=== PATIENT | male | born 1945 | race Caucasian/White ===

== ENCOUNTER 2020-03-08 11:23 | Outpatient (REF) | payer MEDICARE, SELFPAY | END 2020-03-08 11:24 | disposition home or self-care (01) | LOC: HO.LAB 11:23 | PROVIDERS: PCP Internal Medicine; Visit Provider Internal Medicine | DX: Z20.828 Contact with and (suspected) exposure to other viral communicable diseases (principal) | CPT/HCPCS: C9803; U0003 ==

== ENCOUNTER → 2020-04-30 09:39 | Outpatient (BNVA) | payer MEDICARE, SELFPAY | PROVIDERS: PCP Internal Medicine; Visit Provider Surgery | DX: K40.90 Unilateral inguinal hernia, without obstruction or gangrene, not specified as recurrent (principal) | CPT/HCPCS: 99202 ==

== ENCOUNTER 2020-05-13 07:21 | Outpatient (REF) | payer MEDICARE, SELFPAY ==
[2020-05-13 08:35] LABS: MANUAL DIFF FLAG SCAN; Mean Corpuscular Volume 97.1 fL (80-98); Mean Platelet Volume 9.9 fL (9.4-12.4); PLT CLUMP 1; SCAN SMEAR FLAG 1
[2020-05-13 08:37] LABS: Basophils Percent Auto 0.4 % (0-2); Eosinophils Absolute Auto 0.3 X10*3/uL (0.0-0.4); Eosinophils Percent Auto 4.9 % (0-4); Hematocrit 40.6 % (42-52); Hemoglobin 13.7 g/dl (14.0-18.0); Imm Gran Abs Auto 0.01 X10*3/uL (0.00-0.03); Imm Gran Pct Auto 0.2 % (0.0-0.4); Lymphocytes Absolute Auto 1.6 X10*3/uL (1.2-4.9); Lymphocytes Percent Auto 30.5 % (20-40); Mean Corpuscular HGB Conc 33.7 g/dl (31.0-36.0); Mean Corpuscular Hemoglobin 32.8 pg (27.0-33.0); Monocytes Absolute Auto 0.6 X10*3/uL (0.1-1.2); Monocytes Percent Auto 10.7 % (2-11); Neutrophils Absolute Auto 2.9 X10*3/uL (2.0-8.3); Neutrophils Percent Auto 53.3 % (45-73); Platelet Count 144 X10*3/uL (160-400); Red Blood Count 4.18 X10*6/uL (4.60-5.80); Red Cell Distribution Width 12.3 % (11.0-16.0); White Blood Count 5.3 X10*3/uL (4.8-10.8)
[2020-05-13 08:44] LABS: Glucose Urine UA NEG (NEG); Leukocyte Esterase Urine NEG (NEG); Nitrite Urine NEG (NEG); Urine Blood TRACE (NEG); Urine Ketones NEG (NEG); Urine Protein NEG (NEG-TRACE)
[2020-05-13 08:48] LABS: Appearance Urine CLEAR; Color Urine YELLOW
[2020-05-13 08:58] LABS: Alanine Aminotransferase 23 U/L (0-40); Albumin Level 4.2 g/dL (3.5-5.0); Alkaline Phosphatase 72 U/L (39-117); Anion Gap 10 (12-20); Aspartate Amino Transferase 22 U/L (5-37); Bilirubin Total 0.6 mg/dL (0.0-1.0); Blood Urea Nitrogen 14 mg/dL (9-16); Calcium 8.8 mg/dL (8.4-10.2); Carbon Dioxide 31 mmol/L (22-29); Chloride 104 mmol/L (96-108); Cholesterol 98 mg/dL; Estimated Glomerular Filt Rate > 60; Glucose Fasting 107 mg/dL (60-99); HDL Cholesterol 43 mg/dL; LDL Cholesterol Calculated 47 mg/dl; Potassium 3.9 mmol/l (3.3-5.1); Sodium 141 mmol/L (135-145); Total Protein 6.3 g/dL (6.5-8.0); Triglycerides 44 mg/dL
[2020-05-13 09:01] LABS: RBC Urine 0-2 /HPF (0); Squamous Epithelial Cell Urine TRACE /LPF; WBC Clumps Urine NOTED
[2020-05-13 09:13] LABS: Estimated Average Glucose 117 mg/dL; Hemoglobin A1c % 5.7 %
[2020-05-13 09:20] LABS: Prostate Specific Antigen 0.37 ng/mL (<0.05-4.0)
== END 2020-05-13 07:22 | disposition home or self-care (01) ==
LOC: HO.LAB 07:21
PROVIDERS: Absent Provider Internal Medicine; PCP Internal Medicine; Visit Provider Internal Medicine
DX: Z00.00 Encounter for general adult medical examination without abnormal findings (principal); Z01.812 Encounter for preprocedural laboratory examination; R63.4 Abnormal weight loss; I10 Essential (primary) hypertension; E78.00 Pure hypercholesterolemia, unspecified; R73.03 Prediabetes; N40.0 Benign prostatic hyperplasia without lower urinary tract symptoms; D72.820 Lymphocytosis (symptomatic); Z12.5 Encounter for screening for malignant neoplasm of prostate
CPT/HCPCS: 36415; 80053; 80061; 81001; 83036; 84153; 85025

== ENCOUNTER → 2020-06-18 10:15 | Outpatient (BNVA) | payer MEDICARE, SELFPAY | LOC: CF 06-19 10:27 | PROVIDERS: PCP Internal Medicine; Visit Provider Nurse Practitioner | DX: Z76.89 Persons encountering health services in other specified circumstances (principal) | CPT/HCPCS: 99212 ==

== ENCOUNTER 2020-06-19 10:24 | Outpatient (REF) | payer MEDICARE, SELFPAY ==
[2020-06-19 11:46] LABS: TSH reflex Free T4 0.98 uIU/mL (0.32-4.0)
== END 2020-06-19 10:25 | disposition home or self-care (01) ==
LOC: HO.LAB 10:24
PROVIDERS: Visit Provider Nurse Practitioner
DX: K59.04 Chronic idiopathic constipation (principal)
CPT/HCPCS: 36415; 84443

== ENCOUNTER → 2020-07-09 10:05 | Outpatient (BNVA) | payer MEDICARE, SELFPAY | PROVIDERS: PCP Internal Medicine; Visit Provider Nurse Practitioner | DX: Z13.89 Encounter for screening for other disorder (principal) | CPT/HCPCS: Q3014 ==

== ENCOUNTER → 2020-07-23 09:19 | Outpatient (BNVA) | payer MEDICARE, SELFPAY | PROVIDERS: PCP Internal Medicine; Visit Provider Nurse Practitioner | DX: Z13.89 Encounter for screening for other disorder (principal) | CPT/HCPCS: 99212 ==

== ENCOUNTER → 2020-07-25 13:36 | Outpatient (BNVA) | payer MEDICARE, SELFPAY | PROVIDERS: PCP Internal Medicine; Visit Provider Surgery | DX: K40.90 Unilateral inguinal hernia, without obstruction or gangrene, not specified as recurrent (principal) | CPT/HCPCS: 99212 ==

== ENCOUNTER 2020-08-12 07:23 | Day surgery (SDC) | payer MEDICARE, SELFPAY ==
[2020-08-06 14:54] VITALS: BMI 22.6
--- NOTE | 2020-08-08 13:06 | HO.ANESPROP2 ---
Documented by User: Gayatri Burgos 08/08/20 13:08 HPI - Anesthesia Eval Consult details Narrative: 75yo M for Right Hernia Repair Inguinal with Mesh daily ETOH PMFSH Active Problems Active Problems: All Active Problems (Updated 08/06/20 @ 14:48 by Emilia Soto) Right inguinal hernia (Acute) Lymphocytic colitis (Acute) Tubular adenoma of colon (Acute) Chronic idiopathic constipation (Acute) Weight loss, abnormal (Acute) Abdominal bloating (Acute) Past Medical History Medical History Anxiety Atherosclerotic heart disease of [place] coronary artery without angina pectoris Essential hypertension History of irritable bowel syndrome Pre-diabetes Prostatism Pure hypercholesterolemia Family History Family History Father History of skin cancer Surgical History Surgical History H/O coronary angioplasty History of colonoscopy History of Mohs surgery for squamous cell carcinoma in situ of skin History of vascular surgery Social History Social History Household Members: Spouse Alcohol intake: current Alcohol intake frequency: 0-2 drinks per day Alcohol type: beer and wine Smoking Status: Never smoker Use of substances other than those prescribed or required for medical reasons: No Advance Directives: No Advance Directives Information Provided: No Advance Directives on File: No Recently lost weight without trying: Yes Meds Allergies Allergy/AdvReac Type Severity Reaction Status Date / Time No Known Allergies Allergy Verified 08/12/20 08:33 [No Known Allergies*] Home Medications Medication Instructions Recorded Confirmed Last Taken Type aspirin 81 mg tablet,delayed 81 mg PO DAILY 04/30/20 08/06/20 Unknown History release atorvastatin 80 mg tablet 80 mg PO DAILY 04/30/20 08/06/20 Unknown History dutasteride 0.5 mg capsule 0.5 mg PO DAILY 04/30/20 08/06/20 Unknown History evolocumab 140 mg/mL subcutaneous 140 mg SUBCUT Q2W 04/30/20 08/06/20 Unknown History pen injector lorazepam 1 mg tablet 1 mg PO BEDTIME 04/30/20 08/06/20 Unknown History melatonin 5 mg tablet 10 mg PO BEDTIME PRN 04/30/20 08/06/20 Unknown History metoprolol tartrate 100 mg tablet 100 mg PO DAILY 04/30/20 08/06/20 08/12/20 History quinapril 10 mg tablet 10 mg PO DAILY 04/30/20 08/06/20 Unknown History tamsulosin 0.4 mg capsule 0.4 mg PO DAILY 04/30/20 08/06/20 Unknown History tramadol 50 mg tablet 50 mg PO Q12H PRN 04/30/20 08/06/20 Unknown History docusate sodium 250 mg capsule 250 mg PO DAILY 07/25/20 08/06/20 Unknown History simethicone 180 mg PO BID 08/06/20 08/06/20 Unknown History Exam Exam Date and Time: August 08, 2020 1307 Height,Weight and Vital Signs: Height 5 ft 11 in Weight 73.482 kg Assessment and Plan Assessment Anesthesia Assessment: Chart Reviewed Documented by User: Elian Li 08/12/20 08:38 [facility] Past Medical History Medical History Anxiety Atherosclerotic heart disease of [place] coronary artery without angina pectoris Essential hypertension History of irritable bowel syndrome Pre-diabetes Prostatism Pure hypercholesterolemia Family History Family History Father History of skin cancer Surgical History Surgical History H/O coronary angioplasty History of colonoscopy History of Mohs surgery for squamous cell carcinoma in situ of skin History of vascular surgery Social History Social History Household Members: Spouse Alcohol intake: current Alcohol intake frequency: 0-2 drinks per day Alcohol type: beer and wine Smoking Status: Never smoker Use of substances other than those prescribed or required for medical reasons: No Advance Directives: No Advance Directives Information Provided: No Advance Directives on File: No Recently lost weight without trying: Yes Meds Allergies Allergy/AdvReac Type Severity Reaction Status Date / Time No Known Allergies Allergy Verified 08/12/20 08:33 [No Known Allergies*] Home Medications Medication Instructions Recorded Confirmed Last Taken Type aspirin 81 mg tablet,delayed 81 mg PO DAILY 04/30/20 08/06/20 Unknown History release atorvastatin 80 mg tablet 80 mg PO DAILY 04/30/20 08/06/20 Unknown History dutasteride 0.5 mg capsule 0.5 mg PO DAILY 04/30/20 08/06/20 Unknown History evolocumab 140 mg/mL subcutaneous 140 mg SUBCUT Q2W 04/30/20 08/06/20 Unknown History pen injector lorazepam 1 mg tablet 1 mg PO BEDTIME 04/30/20 08/06/20 Unknown History melatonin 5 mg tablet 10 mg PO BEDTIME PRN 04/30/20 08/06/20 Unknown History metoprolol tartrate 100 mg tablet 100 mg PO DAILY 04/30/20 08/06/20 08/12/20 History quinapril 10 mg tablet 10 mg PO DAILY 04/30/20 08/06/20 Unknown History tamsulosin 0.4 mg capsule 0.4 mg PO DAILY 04/30/20 08/06/20 Unknown History tramadol 50 mg tablet 50 mg PO Q12H PRN 04/30/20 08/06/20 Unknown History docusate sodium 250 mg capsule 250 mg PO DAILY 07/25/20 08/06/20 Unknown History simethicone 180 mg PO BID 08/06/20 08/06/20 Unknown History Exam Airway Mallampati Class: II TM Dist: >3cm Neck ROM: Full Partial: Upper Loose/Missing/Broken Teeth: Yes Heart: [id number] Lungs: cta b/l Assessment and Plan Assessment Anesthesia Assessment: Anesthesia Plan Discussed, PAT Visit and Chart Reviewed Final Anesthetic Review NPO: Yes ASA Class: III Final Preanesthetic Review: No Changes in Pt Med Stat, Meds/Allgs Chart Reviewed, Consent Obtained/Reviewed and Anes Risks/Benef Reviewed Patient Risk: Intermediate Procedure Risk: Low Assessment/Block/Sedation in SS: Assess/Block/Sedation-SS Anesthetic Plan Anesthetic Plan: Agree w/ Assess. and Plan Disposition: Standard PACU
[2020-08-12] VITALS (7 sets, daily range): BP systolic 131–142; BP diastolic 68–88; PULSE 55–68; RESP 11–16; TEMP 36.3–36.7; O2SAT 98–100
--- NOTE | 2020-08-12 | ECG_ITS ---
Test Reason : PREOP Blood Pressure : / mmHG Vent. Rate : 052 BPM Atrial Rate : 052 BPM P-R Int : 186 ms QRS Dur : 082 ms QT Int : 428 ms P-R-T Axes : -14 -16 018 degrees QTc Int : 398 ms Sinus bradycardia Otherwise normal ECG When compared with ECG of 14-JAN-2015 08:27, No significant change was found Referred By: Gayatri Burgos Electronically Signed By:GUDELIA UNDERWOOD
--- NOTE | 2020-08-12 08:07 | MHC.SHP ---
Pre-Procedural Eval Section A The patient is an INPATIENT: No Changes since office visit: Yes Patient answered all questions; No Cold of Flu in the past 2 weeks, No New Medical Problems and No Changes in Medication The History & Physical has been completed within 30 days and I have reviewed it.: Yes Section B Chief Complaint: Right Inguinal Hernia Allergies: Allergies Allergy/AdvReac Type Severity Reaction Status Date / Time No Known Allergies Allergy Verified 08/06/20 14:53 [No Known Allergies*] Plan Diagnosis/Plan: Unchanged I have reviewed the history and physical and performed a pertinent physical examination on my patient. No changes have occurred unless specified.
[2020-08-12] MEDS: Lactated Ringers 1,000 ML 100 ML IVCONT (08:43)
--- NOTE | 2020-08-12 09:58 | W.PM.OPN ---
Operative Note Operative Note Date of Service: 08/12/20 Narrative: Preoperative diagnosis: Right inguinal hernia Postoperative diagnosis: Same Procedure: Repair of right inguinal hernia Surgeon: Johann Honeycutt MD Network Contract Manager: None Anesthesia: General LMA Indications for procedure: 75-year-old male presenting with a painful lump in the right groin which is increasing in size. On examination patient has a large right inguinal hernia which increases in size with Valsalva maneuvers. Operative findings:. Moderate-sized indirect right inguinal hernia Specimen: Hernia sac Estimated blood loss: 5 mL Complications: None Procedure details: Patient was brought to the OR and placed in a supine position. After administering general anesthesia the patient's abdomen was prepped with ChloraPrep and draped in a sterile fashion. A surgical time-out was called the consent confirmed. Patient received preoperative antibiotics and Venodyne boots were in place. Local anesthesia consisting of 0.5% Sensorcaine with epinephrine was infiltrated over the right inguinal ligament. Incision was then made in oblique fashion over the inguinal ligament. This carried out through subcutaneous tissue past Michelet's fashion up to the external oblique aponeurosis. Additional local was infiltrated below the external oblique aponeurosis. This was then incised with a scalpel wide with the Metzenbaum scissors. Spermatic cord was then dissected free from the surrounding inguinal canal and retracted using a [place] drain. The floor of the inguinal canal was examined and no direct hernia was identified. Fibers of the cremasteric muscle were then and an indirect sac was identified. This was dissected down to the internal ring. The sac was then opened and the contents reduced. The sac was then ligated with a 0 Polysorb suture. The sac was then divided above this. This was sent to the pathology department as a specimen. Attention was then directed to the direct space which was divided between Allis clamps. Fibers of the internal oblique and transversalis aponeurosis were divided and the preperitoneal space was opened. This was opened further with an open Ray-Master. A large extended PHS mesh was then obtained. The circular underlay was placed into the preperitoneal space and deployed. The overlay was then secured to the pubic tubercle conjoined tendon shelving edge of the inguinal ligament using interrupted 0 Polysorb sutures. A slit was made in the mesh and the mesh were wrapped around the spermatic cord at the internal ring. This was then secured to the shelving edge of the inguinal ligament using the 0 Polysorb suture. This was felt to be loose enough to allow the tip of an index finger to pass. Wounds were checked for hemostasis. Wounds were irrigated with saline solution and suctioned dry. External oblique aponeurosis was then closed using a running 2 0 Polysorb suture. Michelet's fascia and dermis reapproximated using interrupted 3-0 Polysorb sutures. Skin was then closed using a running subcuticular 4-0 Polysorb suture. Steri-Strips 2 x 2 gauze and Tegaderm were then applied. The patient tolerated the procedure well. Sponge, instrument, needle counts reported as correct. Patient was transferred to PACU in stable condition.
== END 2020-08-12 11:39 | disposition home or self-care (01) ==
PROVIDERS: PCP Internal Medicine; Visit Provider Surgery
PROC: (CPT 49505; principal; 2020-08-12 09:40)
DX: K40.90 Unilateral inguinal hernia, without obstruction or gangrene, not specified as recurrent (principal); I25.10 Atherosclerotic heart disease of native coronary artery without angina pectoris; Z98.61 Coronary angioplasty status; I10 Essential (primary) hypertension; R73.03 Prediabetes; Z79.82 Long term (current) use of aspirin; Z79.899 Other long term (current) drug therapy
CPT/HCPCS: 49505; 88302; 93005; C1781; J0690; J2250; J2405; J3010

== ENCOUNTER → 2020-08-13 13:07 | Outpatient (BNVA) | payer MEDICARE, SELFPAY | PROVIDERS: PCP Internal Medicine; Visit Provider Nurse Practitioner | DX: Z13.89 Encounter for screening for other disorder (principal) | CPT/HCPCS: 99212 ==

== ENCOUNTER → 2020-08-23 13:49 | Outpatient (BNVA) | payer MEDICARE, SELFPAY | PROVIDERS: PCP Internal Medicine; Visit Provider Surgery | DX: Z48.815 Encounter for surgical aftercare following surgery on the digestive system (principal); Z87.19 Personal history of other diseases of the digestive system | CPT/HCPCS: 99211; 99212 ==

== ENCOUNTER → 2020-09-17 15:03 | Outpatient (BNVA) | payer MEDICARE, SELFPAY | PROVIDERS: Visit Provider Nurse Practitioner ==

== ENCOUNTER → 2020-09-19 11:18 | Outpatient (BNVA) | payer MEDICARE, SELFPAY | PROVIDERS: PCP Internal Medicine; Referring Provider Internal Medicine; Visit Provider Surgery | DX: K40.90 Unilateral inguinal hernia, without obstruction or gangrene, not specified as recurrent (principal) | CPT/HCPCS: 99212 ==

== ENCOUNTER → 2020-09-20 15:53 | Outpatient (BNVA) | payer MEDICARE, SELFPAY | PROVIDERS: PCP Internal Medicine; Referring Provider Internal Medicine; Visit Provider Nurse Practitioner | DX: R14.0 Abdominal distension (gaseous) (principal); R63.4 Abnormal weight loss; K59.04 Chronic idiopathic constipation; K52.832 Lymphocytic colitis; D12.6 Benign neoplasm of colon, unspecified | CPT/HCPCS: 99212 ==

== ENCOUNTER 2020-10-07 09:35 | Outpatient (REF) | payer MEDICARE, SELFPAY ==
--- NOTE | ~2020-10-07 | FL_ITS ---
EXAMINATION: XR GI SERIES CLINICAL INFORMATION: Heartburn. COMPARISON: Upper GI high-density exam 09/03/2014. TECHNIQUE: Routine upper GI air-contrast study was performed. FINDINGS: Following oral administration of thick barium in upright view, there is normal propagation of bolus from the oral cavity through the pharynx and esophagus and into the stomach without any evidence of obstruction, narrowing or stricture. The peristalsis was unremarkable. On placing patient supine and prone lying, there is moderate gastroesophageal reflux into the mid esophagus with small sliding hiatal hernia. FLUOROSCOPY TIME: 1.3 minutes. DOSE AREA PRODUCT: 16.230 uGy-m2 (microgray-meter squared). FL/FL upper GI series IMPRESSION: Moderate gastroesophageal reflux with small sliding hiatal hernia.
== END 2020-10-07 09:36 | disposition home or self-care (01) ==
LOC: HO.XRAY 09:35
PROVIDERS: Absent Provider Nurse Practitioner; PCP Internal Medicine; Visit Provider Internal Medicine
DX: R12 Heartburn (principal)
CPT/HCPCS: 74240

== ENCOUNTER → 2020-10-31 09:06 | Outpatient (BNVA) | payer MEDICARE, SELFPAY | PROVIDERS: Visit Provider Nurse Practitioner | DX: Z13.89 Encounter for screening for other disorder (principal) | CPT/HCPCS: Q3014 ==

== ENCOUNTER 2020-11-29 08:34 | Day surgery (SDC) | payer MEDICARE, SELFPAY ==
[2020-11-22 14:31] VITALS: BMI 22.6
--- NOTE | 2020-11-28 08:31 | HO.ANESPROP2 ---
Documented by User: Gayatri Burgos 11/28/20 08:33 HPI - Anesthesia Eval Consult details Narrative: 75yo M for Upper Endoscopy daily ETOH s/p inguinal hernia repair 08/2020 with GA-LMA 5 PMFSH Active Problems Active Problems: All Active Problems (Updated 10/31/20 @ 10:31 by ARIADNE Oro) Right inguinal hernia (Acute) Lymphocytic colitis (Acute) Tubular adenoma of colon (Acute) Chronic idiopathic constipation (Acute) Weight loss, abnormal (Acute) Abdominal bloating (Acute) GERD (gastroesophageal reflux disease) (Acute) Past Medical History Medical History (Updated 10/31/20 @ 10:31 by ARIADNE Oro) Anxiety Atherosclerotic heart disease of [place] coronary artery without angina pectoris Essential hypertension History of irritable bowel syndrome Pre-diabetes Prostatism Pure hypercholesterolemia Family History Family History Father History of skin cancer Surgical History Surgical History (Updated 11/22/20 @ 14:21 by Janee Harper) H/O coronary angioplasty History of colonoscopy History of Mohs surgery for squamous cell carcinoma in situ of skin History of vascular surgery Hx of hernia repair Social History Social History Household Members: Spouse Are you a primary child care attendant to a significant other at home: No Do you presently have visiting nurse or other home services: No Alcohol intake: current Alcohol intake frequency: 0-2 drinks per day Alcohol type: beer and wine Patient Tobacco Use Status: Never used Tobacco Use of substances other than those prescribed or required for medical reasons: No Have you been hit, kicked, punched, or otherwise hurt by someone within the past year? If so, by whom?: No Are you DNR?: No Advance Directives: No Advance Directives Information Provided: No Advance Directives on File: No Recently lost weight without trying: No Eating poorly because of decreased appetite: No Meds Allergies Allergy/AdvReac Type Severity Reaction Status Date / Time No Known Allergies Allergy Verified 11/22/20 14:25 [No Known Allergies*] Home Medications Medication Instructions Recorded Confirmed Last Taken Type aspirin 81 mg tablet,delayed 81 mg PO DAILY 04/30/20 11/22/20 11/28/20 History release atorvastatin 80 mg tablet 80 mg PO DAILY 04/30/20 11/22/20 Unknown History dutasteride 0.5 mg capsule 0.5 mg PO DAILY 04/30/20 11/22/20 Unknown History evolocumab 140 mg/mL subcutaneous 140 mg SUBCUT Q2W 04/30/20 11/22/20 Unknown History pen injector lorazepam 1 mg tablet 1 mg PO BEDTIME 04/30/20 11/22/20 Unknown History melatonin 5 mg tablet 10 mg PO BEDTIME PRN 04/30/20 11/22/20 Unknown History metoprolol tartrate 100 mg tablet 100 mg PO DAILY 04/30/20 11/22/20 08/12/20 History quinapril 10 mg tablet 10 mg PO DAILY 04/30/20 11/22/20 Unknown History tamsulosin 0.4 mg capsule 0.4 mg PO DAILY 04/30/20 11/22/20 Unknown History tramadol 50 mg tablet 50 mg PO Q12H PRN 04/30/20 11/22/20 Unknown History docusate sodium 250 mg capsule 250 mg PO DAILY 07/25/20 11/22/20 Unknown History (Stool Softener) simethicone 180 mg capsule 180 mg PO BID 08/06/20 11/22/20 Unknown History Exam Exam Date and Time: November 28, 2020 0831 Height,Weight and Vital Signs: Height 5 ft 11 in Weight 73.4 kg Assessment and Plan Assessment Anesthesia Assessment: Chart Reviewed Documented by User: Latesha Nunez 11/29/20 09:45 [facility] Past Medical History Medical History (Updated 10/31/20 @ 10:31 by ARIADNE Oro) Anxiety Atherosclerotic heart disease of [place] coronary artery without angina pectoris Essential hypertension History of irritable bowel syndrome Pre-diabetes Prostatism Pure hypercholesterolemia Family History Family History Father History of skin cancer Family history of problems with anesthesia: No Surgical History Surgical History (Updated 11/22/20 @ 14:21 by Janee Harper) H/O coronary angioplasty History of colonoscopy History of Mohs surgery for squamous cell carcinoma in situ of skin History of vascular surgery Hx of hernia repair History of Problems with Anesthesia: No Social History Social History Household Members: Spouse Are you a primary child care attendant to a significant other at home: No Do you presently have visiting nurse or other home services: No Alcohol intake: current Alcohol intake frequency: 0-2 drinks per day Alcohol type: beer and wine Patient Tobacco Use Status: Never used Tobacco Use of substances other than those prescribed or required for medical reasons: No Have you been hit, kicked, punched, or otherwise hurt by someone within the past year? If so, by whom?: No Are you DNR?: No Advance Directives: No Advance Directives Information Provided: No Advance Directives on File: No Recently lost weight without trying: No Eating poorly because of decreased appetite: No Meds Allergies Allergy/AdvReac Type Severity Reaction Status Date / Time No Known Allergies Allergy Verified 11/22/20 14:25 [No Known Allergies*] Home Medications Medication Instructions Recorded Confirmed Last Taken Type aspirin 81 mg tablet,delayed 81 mg PO DAILY 04/30/20 11/22/20 11/28/20 History release atorvastatin 80 mg tablet 80 mg PO DAILY 04/30/20 11/22/20 Unknown History dutasteride 0.5 mg capsule 0.5 mg PO DAILY 04/30/20 11/22/20 Unknown History evolocumab 140 mg/mL subcutaneous 140 mg SUBCUT Q2W 04/30/20 11/22/20 Unknown History pen injector lorazepam 1 mg tablet 1 mg PO BEDTIME 04/30/20 11/22/20 Unknown History melatonin 5 mg tablet 10 mg PO BEDTIME PRN 04/30/20 11/22/20 Unknown History metoprolol tartrate 100 mg tablet 100 mg PO DAILY 04/30/20 11/22/20 08/12/20 History quinapril 10 mg tablet 10 mg PO DAILY 04/30/20 11/22/20 Unknown History tamsulosin 0.4 mg capsule 0.4 mg PO DAILY 04/30/20 11/22/20 Unknown History tramadol 50 mg tablet 50 mg PO Q12H PRN 04/30/20 11/22/20 Unknown History docusate sodium 250 mg capsule 250 mg PO DAILY 07/25/20 11/22/20 Unknown History (Stool Softener) simethicone 180 mg capsule 180 mg PO BID 08/06/20 11/22/20 Unknown History Exam Airway Mallampati Class: II (Upper partial) TM Dist: >3cm Neck ROM: Full Heart: amaris Lungs: cta Assessment and Plan Assessment Anesthesia Assessment: Anesthesia Plan Discussed and Chart Reviewed Final Anesthetic Review Family History of Problems with Anesthesia: No History of Problems with Anesthesia: No NPO: Yes ASA Class: II Final Preanesthetic Review: No Changes in Pt Med Stat, Meds/Allgs Chart Reviewed and Consent Obtained/Reviewed Patient Risk: Intermediate Procedure Risk: Intermediate Anesthetic Plan Anesthetic Plan: MAC: Disposition: Standard PACU
[2020-11-29 09:00] VITALS: BP 125/65; PULSE 50; RESP 8; TEMP 36.1; O2SAT 97
--- NOTE | 2020-11-29 09:15 | ECG_ITS ---
Test Reason : PREOP Blood Pressure : / mmHG Vent. Rate : 049 BPM Atrial Rate : 049 BPM P-R Int : 192 ms QRS Dur : 082 ms QT Int : 442 ms P-R-T Axes : -13 -21 009 degrees QTc Int : 399 ms Sinus bradycardia Otherwise normal ECG When compared with ECG of 12-AUG-2020 08:01, No significant change was found Referred By: Latesha Nunez Electronically Signed By:GUDELIA UNDERWOOD
[2020-11-29] MEDS: Lactated Ringers 1,000 ML 100 ML IVCONT (09:59)
[2020-11-29 11:12] VITALS: BP 120/63; PULSE 57; RESP 16; TEMP 36.2; O2SAT 97
--- NOTE | 2020-11-29 11:21 | P.BOP_ITS ---
Brief Operative Note Date of Service: 11/29/20 Pre-op diagnosis: GERD Post-op diagnosis: other (Small hiatal hernia) Procedure: EGD with biopsies Surgeon: Bennett Colin Anesthesia: MAC Was an Biodiesel Production Associate used for this Procedure?: No Estimated blood loss (mL): 2.0 Pathology: other (A. Gastric antrum B. EG Junction at 40cm) Condition: stable Disposition: PACU
[2020-11-29 11:27] VITALS: BP 125/69; PULSE 51; RESP 16; O2SAT 97
[2020-11-29 11:41] VITALS: BP 110/71; PULSE 51; RESP 18; O2SAT 98
--- NOTE | 2020-11-29 11:42 | OP_ITS ---
SURGEON: Bennett Colin MD INDICATIONS: The patient presents for evaluation of gastroesophageal reflux. Full consent has been obtained from him for this, including risks of bleeding and perforation. PREOPERATIVE DIAGNOSIS: Gastroesophageal reflux. POSTOPERATIVE DIAGNOSIS: PROCEDURE PERFORMED: Esophagogastroduodenoscopy with biopsy. ESTIMATED BLOOD LOSS: COMPLICATIONS: ANESTHESIA: Monitored anesthesia care. ASSISTANTS: SPECIMENS: POSTOPERATIVE DIAGNOSES: Gastroesophageal reflux, small hiatal hernia. DESCRIPTION OF PROCEDURE: The patient was placed in the left lateral decubitus position. The Olympus video gastroscope was passed in the posterior oropharynx and upper esophagus under direct vision. The scope was passed slowly into the distal esophagus. The gastroesophageal junction appeared at 40 cm. This area appeared minimally irregular consistent with some reflux, but there was certainly no esophagitis nor any evidence of Jerry's mucosa. The scope entered into the stomach. There was a small hiatal hernia. The scope was advanced to the pylorus and the duodenum was cannulated to the descending portion. The duodenum including the bulb appeared normal without mass or ulceration. The scope was withdrawn back into the stomach. The gastric antrum had some minimal areas of erythema, but there was good peristalsis, and no erosions nor ulceration. Biopsies were obtained from the antrum. The scope was retroflexed visualizing the proximal stomach carefully which appeared normal, without any sign of mass or ulceration. The scope was straightened out and withdrawn back into the esophagus. Biopsies were obtained at the EG junction at 40 cm. Proximal to this, the esophageal mucosa appeared normal. The scope was withdrawn from the patient. He tolerated the procedure well and was returned to the recovery area in stable condition. IMPRESSION: Small hiatal hernia, gastroesophageal reflux. PLAN: The results of the biopsies will be checked. At this point, he will continue his current regimen of the pantoprazole once or twice a day for symptomatic relief. He was advised to see me in the fall for a followup visit. Based on these essentially normal findings, I do not think any further workup would be required and I would not recommend consideration of hiatal hernia surgery at this time. He was advised that he could resume aspirin tomorrow. MD MARIAN Torrez/OFEL / [id number] LEIGHANN
== END 2020-11-29 12:27 | disposition home or self-care (01) ==
PROVIDERS: PCP Internal Medicine; Visit Provider Internal Medicine
PROC: 0DJ08ZZ Inspection of Upper Intestinal Tract, Via Natural or Artificial Opening Endoscopic (ICD-10-PCS; CPT 43235; principal; 2020-11-29 10:10)
DX: K21.9 Gastro-esophageal reflux disease without esophagitis (principal); K44.9 Diaphragmatic hernia without obstruction or gangrene; K29.50 Unspecified chronic gastritis without bleeding; K20.80 Other esophagitis without bleeding; I25.10 Atherosclerotic heart disease of native coronary artery without angina pectoris; Z98.61 Coronary angioplasty status; I10 Essential (primary) hypertension; Z79.899 Other long term (current) drug therapy; Z79.82 Long term (current) use of aspirin; Z85.828 Personal history of other malignant neoplasm of skin
CPT/HCPCS: 43239; 88305; 88342; 93005

== ENCOUNTER 2021-01-20 08:15 | Outpatient (REF) | payer MEDICARE, SELFPAY ==
--- NOTE | ~2021-01-20 | US_ITS ---
EXAMINATION: US ABDOMEN COMPLETE CLINICAL INFORMATION: Epigastric pain. COMPARISON: Upper GI 10/07/2020 and 09/03/2014 TECHNIQUE: Real-time imaging of the abdominal viscera. FINDINGS: PANCREAS: Normal. ABDOMINAL AORTA: The proximal, mid, and distal segments are normal in caliber. There is mild ectasia of the abdominal aorta but no aneurysmal dilatation in the mid segment. INFERIOR VENA CAVA: Visualized portions are normal. LIVER: Normal. The liver is normal in size. The liver contour is normal. Parenchymal echogenicity is normal. No focal hepatic lesion. There is no intrahepatic biliary duct dilatation seen. GALLBLADDER: Normal. The gallbladder is physiologically distended without evidence of stones, sludge, polyps, wall thickening or pericholecystic fluid. COMMON BILE DUCT: Normal in caliber measuring 0.3 cm in diameter. RIGHT KIDNEY: Normal. No hydronephrosis. No renal calculi or focal parenchymal lesions. The kidney measures 11.7 cm in maximum dimension. LEFT KIDNEY: Normal. No hydronephrosis. No renal calculi or focal parenchymal lesions. The kidney measures 11.2 cm in maximum dimension. SPLEEN: A small accessory splenule is visualized measuring 2.0 x 1.8 x 1.7 cm. The spleen measures 10.7 cm in maximum dimension. FREE FLUID: None. US/US abdomen complete IMPRESSION: Minimal ectasia mid abdominal aorta but no aneurysmal dilatation. Small accessory splenule inferior to the hilum. Rest of the abdominal ultrasound is unremarkable.
== END 2021-01-20 08:16 | disposition home or self-care (01) ==
LOC: HO.US 08:15
PROVIDERS: PCP Internal Medicine; Visit Provider Internal Medicine
DX: R10.13 Epigastric pain (principal)
CPT/HCPCS: 76700

== ENCOUNTER 2021-02-14 08:10 | Outpatient (REF) | payer MEDICARE, SELFPAY ==
[2021-02-14 08:58] LABS: PLT CLUMP 1; SCAN SMEAR FLAG 1
[2021-02-14 09:00] LABS: Basophils Percent Auto 0.6 % (0-2); Eosinophils Absolute Auto 0.2 X10*3/uL (0.0-0.4); Hematocrit 35.8 % (42-52); Hemoglobin 12.4 g/dl (14.0-18.0); Imm Gran Abs Auto 0.02 X10*3/uL (0.00-0.03); Imm Gran Pct Auto 0.4 % (0.0-0.4); Lymphocytes Absolute Auto 1.2 X10*3/uL (1.2-4.9); Lymphocytes Percent Auto 24.3 % (20-40); Mean Corpuscular HGB Conc 34.6 g/dl (31.0-36.0); Mean Corpuscular Hemoglobin 32.6 pg (27.0-33.0); Mean Corpuscular Volume 94.2 fL (80-98); Monocytes Absolute Auto 0.6 X10*3/uL (0.1-1.2); Monocytes Percent Auto 12.2 % (2-11); Neutrophils Absolute Auto 2.8 X10*3/uL (2.0-8.3); Neutrophils Percent Auto 58.5 % (45-73); Platelet Count 130 X10*3/uL (160-400); Red Cell Distribution Width 12.7 % (11.0-16.0); White Blood Count 4.8 X10*3/uL (4.8-10.8)
[2021-02-14 09:27] LABS: INTERNATIONAL NORM RATIO 1.2 (0.9-1.1); Prothrombin Time 13.3 SEC (9.9-13.0)
[2021-02-14 09:33] LABS: Anion Gap 9 (12-20); Blood Urea Nitrogen 13 mg/dL (9-16); Calcium 9.2 mg/dL (8.4-10.2); Carbon Dioxide 27 mmol/L (22-29); Chloride 109 mmol/L (96-108); Estimated Glomerular Filt Rate > 60; Glucose Random 89 mg/dL (60-115); Sodium 141 mmol/L (135-145)
== END 2021-02-14 08:11 | disposition home or self-care (01) ==
LOC: HO.LAB 08:10
PROVIDERS: PCP Internal Medicine; Visit Provider Internal Medicine
DX: R94.39 Abnormal result of other cardiovascular function study (principal); I25.119 Atherosclerotic heart disease of native coronary artery with unspecified angina pectoris
CPT/HCPCS: 36415; 80048; 85025; 85610

== ENCOUNTER 2021-05-08 16:00 | Outpatient (REF) | payer MEDICARE, SELFPAY ==
[2021-05-08 16:02] LABS: MANUAL DIFF FLAG NO
[2021-05-08 16:09] LABS: Basophils Percent Auto 0.5 % (0-2); Eosinophils Absolute Auto 0.2 X10*3/uL (0.0-0.4); Eosinophils Percent Auto 3.8 % (0-4); Hematocrit 38.4 % (42.0-52.0); Hemoglobin 12.8 g/dl (14.0-18.0); Imm Gran Abs Auto 0.01 X10*3/uL (0.00-0.03); Imm Gran Pct Auto 0.2 % (0.0-0.4); Lymphocytes Absolute Auto 1.7 X10*3/uL (1.2-4.9); Lymphocytes Percent Auto 30.5 % (20-40); Mean Corpuscular HGB Conc 33.3 g/dl (31.0-36.0); Mean Corpuscular Hemoglobin 31.4 pg (27.0-33.0); Mean Corpuscular Volume 94.3 fL (80.0-98.0); Mean Platelet Volume 9.8 fL (9.4-12.4); Monocytes Absolute Auto 0.6 X10*3/uL (0.1-1.2); Monocytes Percent Auto 10.1 % (2-11); Neutrophils Absolute Auto 3.1 x10*3/uL (2.0-8.3); Neutrophils Percent Auto 54.9 % (45-73); Platelet Count 165 X10*3/uL (160-400); Red Blood Count 4.07 X10*6/uL (4.60-5.80); Red Cell Distribution Width 12.9 % (11.0-16.0); White Blood Count 5.6 X10*3/uL (4.8-10.8)
[2021-05-08 16:39] LABS: Iron 45 mcg/dL (45-160); Percent Iron Saturation 17 % (15-50); Total Iron Binding Capacity 259 mcg/dL (228-428); Unsaturated Iron Binding 214 ug/dL
== END 2021-05-08 16:01 | disposition home or self-care (01) ==
LOC: HO.LNP 16:00
PROVIDERS: Visit Provider Internal Medicine
DX: D64.9 Anemia, unspecified (principal)
CPT/HCPCS: 83540; 85025

== ENCOUNTER 2021-06-09 10:58 | Outpatient (REF) | payer MEDICARE, SELFPAY ==
[2021-06-09 11:01] LABS: MANUAL DIFF FLAG NO
[2021-06-09 11:19] LABS: Basophils Percent Auto 0.3 % (0-2); Eosinophils Absolute Auto 0.2 X10*3/uL (0.0-0.4); Hematocrit 40.6 % (42.0-52.0); Hemoglobin 13.2 g/dl (14.0-18.0); Imm Gran Abs Auto 0.02 X10*3/uL (0.00-0.03); Imm Gran Pct Auto 0.3 % (0.0-0.4); Lymphocytes Absolute Auto 1.5 X10*3/uL (1.2-4.9); Lymphocytes Percent Auto 25.1 % (20-40); Mean Corpuscular HGB Conc 32.5 g/dl (31.0-36.0); Mean Corpuscular Hemoglobin 30.3 pg (27.0-33.0); Mean Corpuscular Volume 93.3 fL (80.0-98.0); Mean Platelet Volume 9.8 fL (9.4-12.4); Monocytes Absolute Auto 0.6 X10*3/uL (0.1-1.2); Monocytes Percent Auto 10.1 % (2-11); Neutrophils Absolute Auto 3.6 x10*3/uL (2.0-8.3); Neutrophils Percent Auto 61.2 % (45-73); Platelet Count 171 X10*3/uL (160-400); Red Blood Count 4.35 X10*6/uL (4.60-5.80); Red Cell Distribution Width 13.9 % (11.0-16.0); White Blood Count 5.9 X10*3/uL (4.8-10.8)
[2021-06-09 11:29] LABS: Estimated Average Glucose 123 mg/dL; Hemoglobin A1c % 5.9 %
[2021-06-09 11:35] LABS: Appearance Urine CLEAR; Color Urine YELLOW; Glucose Urine UA NEG (NEG); Leukocyte Esterase Urine NEG (NEG); Nitrite Urine NEG (NEG); PH 5.5 (5.0-8.0); Specific Gravity - Urine 1.025 (1.005-1.025); Urine Blood 1+ (NEG); Urine Ketones NEG (NEG); Urine Protein NEG (NEG-TRACE)
[2021-06-09 11:46] LABS: Microalbum/Creatinine Ratio Ur 47.8 ug/mg cr
[2021-06-09 12:00] LABS: Squamous Epithelial Cell Urine TRACE /LPF; WBC Urine 0-2 /HPF (0-4)
[2021-06-09 12:04] LABS: PSA,Total (Free>4and<10) 0.32 ng/mL (0.00-4.00)
[2021-06-09 12:07] LABS: Alanine Aminotransferase 20 U/L (0-40); Albumin Level 4.1 g/dL (3.5-5.0); Alkaline Phosphatase 107 U/L (39-117); Anion Gap 10 (12-20); Aspartate Amino Transferase 22 U/L (5-37); Bilirubin Total 0.7 mg/dL (0.0-1.0); Blood Urea Nitrogen 20 mg/dL (9-16); Calcium 9.4 mg/dL (8.4-10.2); Carbon Dioxide 27 mmol/L (22-29); Chloride 106 mmol/L (96-108); Cholesterol 166 mg/dL; Estimated Glomerular Filt Rate > 60; Glucose Fasting 111 mg/dL (60-99); HDL Cholesterol 34 mg/dL; LDL Cholesterol Calculated 117 mg/dl; Potassium 3.8 mmol/L (3.3-5.1); Sodium 139 mmol/L (135-145); Total Protein 6.7 g/dL (6.5-8.0); Triglycerides 77 mg/dL
== END 2021-06-09 10:59 | disposition home or self-care (01) ==
LOC: HO.LNP 10:58
PROVIDERS: PCP Internal Medicine; Visit Provider Internal Medicine
DX: Z00.00 Encounter for general adult medical examination without abnormal findings (principal); Z12.5 Encounter for screening for malignant neoplasm of prostate; N40.0 Benign prostatic hyperplasia without lower urinary tract symptoms; R73.03 Prediabetes; E78.00 Pure hypercholesterolemia, unspecified; I10 Essential (primary) hypertension
CPT/HCPCS: 80053; 80061; 81001; 81003; 82043; 83036; 84153; 85025

== ENCOUNTER 2021-08-14 10:33 | Outpatient (REF) | payer MEDICARE, SELFPAY ==
[2021-08-14 11:35] LABS: Appearance Urine HAZY; Color Urine YELLOW; Glucose Urine UA NEG (NEG); Leukocyte Esterase Urine NEG (NEG); Nitrite Urine NEG (NEG); Urine Blood TRACE (NEG); Urine Ketones NEG (NEG); Urine Protein NEG (NEG-TRACE)
[2021-08-14 11:50] LABS: Alanine Aminotransferase 18 U/L (0-40); Albumin Level 4.2 g/dL (3.5-5.0); Alkaline Phosphatase 89 U/L (39-117); Aspartate Amino Transferase 22 U/L (5-37); Bilirubin Direct 0.4 mg/dL (0.0-0.5); Bilirubin Total 0.8 mg/dL (0.0-1.0); Cholesterol 111 mg/dL; HDL Cholesterol 39 mg/dL; LDL Cholesterol Calculated 61 mg/dl; Total Protein 6.7 g/dL (6.5-8.0); Triglycerides 56 mg/dL
[2021-08-14 12:00] LABS: Squamous Epithelial Cell Urine TRACE /LPF
[2021-08-14 12:01] LABS: Bacteria Urine TRACE /LPF
[2021-08-14 12:29] LABS: Reflex LDLD? No
== END 2021-08-14 10:34 | disposition home or self-care (01) ==
LOC: HO.LNP 10:33
PROVIDERS: PCP Internal Medicine; Visit Provider Internal Medicine
DX: R31.21 Asymptomatic microscopic hematuria (principal); E78.00 Pure hypercholesterolemia, unspecified
CPT/HCPCS: 80061; 80076; 81001

== ENCOUNTER 2021-12-16 10:45 | Outpatient (REF) | payer MEDICARE, SELFPAY ==
[2021-12-16 11:24] LABS: Alanine Aminotransferase 20 U/L (0-40); Albumin Level 4.3 g/dL (3.5-5.0); Alkaline Phosphatase 68 U/L (39-117); Aspartate Amino Transferase 20 U/L (5-37); Bilirubin Direct 0.5 mg/dL (0.0-0.5); Bilirubin Total 0.9 mg/dL (0.0-1.0); Cholesterol 102 mg/dL; HDL Cholesterol 40 mg/dL; LDL Cholesterol Calculated 49 mg/dl; Total Protein 6.8 g/dL (6.5-8.0); Triglycerides 69 mg/dL
[2021-12-16 12:42] LABS: Reflex LDLD? No
== END 2021-12-16 10:46 | disposition home or self-care (01) ==
LOC: HO.LNP 10:45
PROVIDERS: Visit Provider Internal Medicine
DX: E78.00 Pure hypercholesterolemia, unspecified (principal)
CPT/HCPCS: 80061; 80076

== ENCOUNTER 2022-06-29 11:07 | Outpatient (REF) | payer MEDICARE, SELFPAY ==
[2022-06-29 11:11] LABS: MANUAL DIFF FLAG NO
[2022-06-29 11:42] LABS: Basophils Percent Auto 0.6 % (0-2); Eosinophils Absolute Auto 0.2 X10*3/uL (0.0-0.4); Eosinophils Percent Auto 4.9 % (0-4); Hematocrit 41.2 % (42.0-52.0); Hemoglobin 14.1 g/dl (14.0-18.0); Imm Gran Abs Auto 0.01 X10*3/uL (0.00-0.03); Imm Gran Pct Auto 0.2 % (0.0-0.4); Lymphocytes Absolute Auto 1.6 X10*3/uL (1.2-4.9); Lymphocytes Percent Auto 32.6 % (20-40); Mean Corpuscular HGB Conc 34.2 g/dl (31.0-36.0); Mean Corpuscular Hemoglobin 32.3 pg (27.0-33.0); Mean Corpuscular Volume 94.5 fL (80.0-98.0); Mean Platelet Volume 9.8 fL (9.4-12.4); Monocytes Absolute Auto 0.6 X10*3/uL (0.1-1.2); Monocytes Percent Auto 11.3 % (2-11); Neutrophils Absolute Auto 2.5 x10*3/uL (2.0-8.3); Neutrophils Percent Auto 50.4 % (45-73); Platelet Count 153 X10*3/uL (160-400); Red Blood Count 4.36 X10*6/uL (4.60-5.80); Red Cell Distribution Width 13.2 % (11.0-16.0); White Blood Count 4.9 X10*3/uL (4.8-10.8)
[2022-06-29 11:48] LABS: Estimated Average Glucose 120 mg/dL; Hemoglobin A1c % 5.8 %
[2022-06-29 12:02] LABS: Alanine Aminotransferase 21 U/L (0-40); Albumin Level 4.1 g/dL (3.5-5.0); Alkaline Phosphatase 69 U/L (39-117); Anion Gap 10 (12-20); Appearance Urine Clear; Aspartate Amino Transferase 21 U/L (5-37); Bilirubin Total 1.2 mg/dL (0.0-1.0); Blood Urea Nitrogen 19 mg/dL (9-16); Calcium 9.3 mg/dL (8.4-10.2); Carbon Dioxide 29 mmol/L (22-29); Chloride 106 mmol/L (96-108); Cholesterol 104 mg/dL; Color Urine Yellow; Estimated Glomerular Filt Rate > 60; Glucose Fasting 95 mg/dL (60-99); Glucose Urine UA Negative (Negative); HDL Cholesterol 39 mg/dL; LDL Cholesterol Calculated 50 mg/dl; Leukocyte Esterase Urine Negative (Negative); Nitrite Urine Negative (Negative); PH 6.5 (5.0-9.0); Potassium 3.9 mmol/L (3.3-5.1); Sodium 141 mmol/L (135-145); Total Protein 6.5 g/dL (6.5-8.0); Triglycerides 76 mg/dL; Urine Blood Negative (Negative); Urine Ketones Negative (Negative); Urine Protein Negative (Neg-Trace)
[2022-06-29 12:06] LABS: Bacteria Urine None Seen (None Seen); Hyaline Casts Urine 0-2 /LPF (0-2); Squamous Epithelial Cell Urine 0-2 /HPF (0-2); WBC Urine 0-5 /HPF (0-5)
[2022-06-29 12:19] LABS: PSA,Total (Free>4and<10) 0.56 ng/mL (0.00-4.00)
[2022-06-29 12:48] LABS: Creatinine Urine 103.07 mg/dL; Microalbum/Creatinine Ratio Ur 38.8 ug/mg cr
== END 2022-06-29 11:08 | disposition home or self-care (01) ==
LOC: HO.LNP 11:07
PROVIDERS: Visit Provider Internal Medicine
DX: Z00.00 Encounter for general adult medical examination without abnormal findings (principal); Z12.5 Encounter for screening for malignant neoplasm of prostate; I10 Essential (primary) hypertension; E78.00 Pure hypercholesterolemia, unspecified; R73.03 Prediabetes; N40.0 Benign prostatic hyperplasia without lower urinary tract symptoms; D72.820 Lymphocytosis (symptomatic)
CPT/HCPCS: 80053; 80061; 81001; 82043; 83036; 84153; 85025

== ENCOUNTER 2022-07-09 12:18 | Outpatient (REF) | payer MEDICARE, SELFPAY ==
[2022-07-09 12:36] LABS: Appearance Urine Clear; Color Urine Yellow; Glucose Urine UA Negative (Negative); Leukocyte Esterase Urine Negative (Negative); Nitrite Urine Negative (Negative); PH 5.5 (5.0-9.0); UMIC TRIGGER UACC YES; Urine Blood Small (1+) (Negative); Urine Ketones Negative (Negative); Urine Protein Negative (Neg-Trace)
[2022-07-09 12:39] LABS: Bacteria Urine None Seen (None Seen); Hyaline Casts Urine 0-2 /LPF (0-2); Squamous Epithelial Cell Urine 0-2 /HPF (0-2); WBC Urine 0-5 /HPF (0-5)
== END 2022-07-09 12:19 | disposition home or self-care (01) ==
LOC: HO.LNP 12:18
PROVIDERS: Visit Provider Internal Medicine
DX: R31.9 Hematuria, unspecified (principal)
CPT/HCPCS: 81001

== ENCOUNTER 2023-08-19 10:54 | Outpatient (REF) | payer MEDICARE, SELFPAY ==
[2023-08-19 10:58] LABS: MANUAL DIFF FLAG NO
[2023-08-19 12:19] LABS: Basophils Percent Auto 0.6 % (0-2); Eosinophils Absolute Auto 0.2 X10*3/uL (0.0-0.4); Eosinophils Percent Auto 3.5 % (0-4); Hemoglobin 14.2 g/dl (14.0-18.0); Imm Gran Abs Auto 0.01 X10*3/uL (0.00-0.03); Imm Gran Pct Auto 0.2 % (0.0-0.4); Lymphocytes Percent Auto 31.2 % (20-40); Mean Corpuscular HGB Conc 33.8 g/dl (31.0-36.0); Mean Corpuscular Hemoglobin 32.4 pg (27.0-33.0); Mean Corpuscular Volume 95.9 fL (80.0-98.0); Mean Platelet Volume 10.3 fL (9.4-12.4); Monocytes Absolute Auto 0.6 X10*3/uL (0.1-1.2); Monocytes Percent Auto 9.7 % (2-11); Neutrophils Absolute Auto 3.5 x10*3/uL (2.0-8.3); Neutrophils Percent Auto 54.8 % (45-73); Platelet Count 169 X10*3/uL (160-400); Red Blood Count 4.38 X10*6/uL (4.60-5.80); Red Cell Distribution Width 13.3 % (11.0-16.0); White Blood Count 6.3 X10*3/uL (4.8-10.8)
[2023-08-19 12:37] LABS: Estimated Average Glucose 120 mg/dL; Hemoglobin A1c % 5.8 % (<6.0)
[2023-08-19 13:09] LABS: Creatinine Urine 82.37 mg/dL; Microalbum/Creatinine Ratio Ur 21.8 ug/mg cr (<30)
[2023-08-19 13:17] LABS: Alanine Aminotransferase 20 U/L (0-40); Albumin Level 4.2 g/dL (3.5-5.0); Alkaline Phosphatase 73 U/L (39-117); Anion Gap 10 (12-20); Aspartate Amino Transferase 22 U/L (5-37); Bilirubin Direct 0.4 mg/dL (0.0-0.5); Bilirubin Total 0.9 mg/dL (0.0-1.0); Blood Urea Nitrogen 17 mg/dL (9-16); Calcium 9.5 mg/dL (8.4-10.2); Carbon Dioxide 27 mmol/L (22-29); Chloride 106 mmol/L (96-108); Estimated Glomerular Filt Rate > 60; Glucose Fasting 103 mg/dL (60-99); Potassium 4.1 mmol/L (3.3-5.1); Sodium 139 mmol/L (135-145); Total Protein 6.9 g/dL (6.5-8.0)
== END 2023-08-19 10:55 | disposition home or self-care (01) ==
LOC: HO.LNP 10:54
PROVIDERS: Visit Provider Internal Medicine
DX: Z12.5 Encounter for screening for malignant neoplasm of prostate (principal); R73.03 Prediabetes; I10 Essential (primary) hypertension; D72.820 Lymphocytosis (symptomatic); N40.0 Benign prostatic hyperplasia without lower urinary tract symptoms
CPT/HCPCS: 80053; 80076; 82043; 82248; 82570; 83036; 84153; 85025

== ENCOUNTER 2023-08-26 11:10 | Outpatient (REF) | payer MEDICARE, SELFPAY ==
[2023-08-26 12:08] LABS: Cholesterol 102 mg/dL (<200); HDL Cholesterol 40 mg/dL (>40); LDL Cholesterol Calculated 50 mg/dL (<100); Triglycerides 64 mg/dL (<150)
[2023-08-26 12:54] LABS: Reflex LDLD? No
== END 2023-08-26 11:11 | disposition home or self-care (01) ==
LOC: HO.LNP 11:10
PROVIDERS: Visit Provider Internal Medicine
DX: E78.00 Pure hypercholesterolemia, unspecified (principal)
CPT/HCPCS: 80061

== ENCOUNTER 2024-08-22 10:29 | Outpatient (REF) | payer MEDICARE, SELFPAY ==
[2024-08-22 10:34] LABS: MANUAL DIFF FLAG NO
[2024-08-22 11:16] LABS: Appearance Urine Clear; Color Urine Yellow; Glucose Urine UA Negative (Negative); Leukocyte Esterase Urine Trace (Negative); Nitrite Urine Negative (Negative); Specific Gravity - Urine 1.015 (1.005-1.025); UMIC TRIGGER UACC YES; Urine Blood Small (1+) (Negative); Urine Ketones Negative (Negative); Urine Protein Trace mg/dL (Neg-Trace)
[2024-08-22 11:21] LABS: Basophils Percent Auto 0.5 % (0-2); Eosinophils Absolute Auto 0.2 X10*3/uL (0.0-0.4); Eosinophils Percent Auto 3.1 % (0-4); Hematocrit 42.2 % (42.0-52.0); Hemoglobin 14.3 g/dl (14.0-18.0); Imm Gran Abs Auto 0.03 X10*3/uL (0.00-0.03); Imm Gran Pct Auto 0.5 % (0.0-0.4); Lymphocytes Absolute Auto 1.5 X10*3/uL (1.2-4.9); Lymphocytes Percent Auto 25.3 % (20-40); Mean Corpuscular HGB Conc 33.9 g/dl (31.0-36.0); Mean Corpuscular Hemoglobin 32.3 pg (27.0-33.0); Mean Corpuscular Volume 95.3 fL (80.0-98.0); Mean Platelet Volume 10.1 fL (9.4-12.4); Monocytes Absolute Auto 0.5 X10*3/uL (0.1-1.2); Monocytes Percent Auto 8.8 % (2-11); Neutrophils Absolute Auto 3.7 x10*3/uL (2.0-8.3); Neutrophils Percent Auto 61.8 % (45-73); Platelet Count 157 X10*3/uL (160-400); Red Blood Count 4.43 X10*6/uL (4.60-5.80); Red Cell Distribution Width 12.9 % (11.0-16.0)
[2024-08-22 11:24] LABS: Bacteria Urine None Seen (None Seen); Hyaline Casts Urine 0-2 /LPF (0-2); Squamous Epithelial Cell Urine 0-2 /HPF (0-2); UACC Culture Trigger YES
[2024-08-22 11:31] LABS: Estimated Average Glucose 120 mg/dL; Hemoglobin A1C 149.8935 umol/L; Hemoglobin A1c % 5.8 % (<6.0); Total Hemoglobin (HGBA1C) 3757.7743 umol/L
[2024-08-22 11:38] LABS: Alanine Aminotransferase 26 U/L (0-40); Albumin Level 4.3 g/dL (3.5-5.0); Alkaline Phosphatase 69 U/L (39-117); Anion Gap 12 (12-20); Aspartate Amino Transferase 33 U/L (5-37); Bilirubin Total 0.8 mg/dL (0.0-1.0); Blood Urea Nitrogen 18 mg/dL (9-16); Calcium 9.3 mg/dL (8.4-10.2); Carbon Dioxide 27 mmol/L (22-29); Chloride 106 mmol/L (96-108); Cholesterol 114 mg/dL (<200); Estimated Glomerular Filt Rate > 60; Glucose Fasting 101 mg/dL (60-99); HDL Cholesterol 46 mg/dL (>40); LDL Cholesterol Calculated 58 mg/dL (<100); Potassium 3.6 mmol/L (3.3-5.1); Sodium 141 mmol/L (135-145); Total Protein 6.7 g/dL (6.5-8.0); Triglycerides 52 mg/dL (<150)
[2024-08-22 11:52] LABS: PSA,Total (Free>4and<10) 1.03 ng/mL (0.00-4.00)
[2024-08-22 12:01] LABS: Creatinine Urine 72.81 mg/dL; Microalbum/Creatinine Ratio Ur 76.9 ug/mg cr (<30)
--- OUTSIDE RECORDS SUMMARY | 2024-08-22 12:15 | XMS_ITS | Encounter Summary ---
Author Organization Formerly [facility] Address [address] [place] [address] Care Team Providers Care Customer Orders Clerk Name Role Phone Tod Johnson MD Primary Care Provider Encounter Details Date Type Department Care Team (Late st Contact Info) Description 12/20/2018 Scanned Document [facility] [address] [place] [address] Tod Johnson MD [address] [place] [address] [place] [id number] Social History Tobacco Use Types Packs/Day Years Used Date Smoking Tobacco: Never Assessed Sex and Gender Information Value Date Recorded Sex Assigned at Not on file Legal Sex Male 8:07 AM EDT Gender Identity Not on file Sexual Orientation Not on file documented as of this encounter Plan of Treatment Not on file documented as of this encounter Visit Diagnoses Not on filedocumented in this encounter Care Teams Customer Orders Clerk Relationship Specialty Start Date End Date Tod Johnson MD [address] [place] [address] [place] [address] PCP - General Internal Medicine 12/20/18 documented as of this encounter
--- OUTSIDE RECORDS SUMMARY | 2024-08-22 12:15 | XMS_ITS | Encounter Summary ---
Author Organization [facility] Address [address] [place] [address] Care Team Providers Care Landing Worker Name Role Phone Tod Johnson MD Primary Care Provider [phone] Reason for Visit * Reason Onset Date Comments Pre-Authorization 08/22/2024 Repatha SureCl ick 140MG/ML auto-injectors Encounter Details Date Type Department Care Team (Late st Contact Info) Description 08/22/2024 Telephone [facility] - [facility] [address] [facility] [address] [place] [phone] Jackson Ferrer MD [address] [facility] [address] [place] [address] Pre-Authorization (Repatha SureClick 140MG/ML auto-injectors) Social History Tobacco Use Types Packs/Day Years Used Date Smoking Tobacco: Never Smokeless Tobacco: Never Alcohol Use Standard Drinks/Week Comments Yes 7 (1 standard drink = 0.6 oz pur e alcohol) beer nightly Sex and Gender Information Value Date Recorded Sex Assigned at Not on file Legal Sex Male 10:21 AM EST Gender Identity Not on file Sexual Orientation Not on file documented as of this encounter Progress Notes * Keyona Milton - 08/22/2024 11:54 AM EDT Yes it was for Reji, thank you. * Sandrine Mendes - 08/22/2024 10:47 AM EDT Reji SureClick 140MG/ML [id number] on covermymeds [place] * Keyona Milton - 08/22/2024 10:28 AM EDT Patient called requesting pre authorization be resubmitted to [facility] , fax [phone] documented in this encounter Plan of Treatment Upcoming Encounters Date Type Department Care Team (Late st Contact Info) Description 01/16/2025 1:00 PM EDT Office Visit [facility] - [address] [place] [phone] Jackson Ferrer MD [address] [place] [address] documented as of this encounter Visit Diagnoses Not on filedocumented in this encounter Care Teams Landing Worker Relationship Specialty Start Date End Date Tod Johnson MD PCP - General Internal Medicine 09/29/18 documented as of this encounter
--- OUTSIDE RECORDS SUMMARY | 2024-08-22 12:15 | XMS_ITS | Clinical Summary ---
Author Organization [facility] Address [address] [place] [address] Care Team Providers Care Roustabout Head Name Role Phone Tod Johnson MD Primary Care Provider [phone] Medications cilostazol (PLETAL) 50 mg tablet Take 50 mg by mouth 2 (two) times a day. 0 10/07/2018 Active dutasteride (AVODART) 0.5 MG capsule Take 0.5 mg by mouth. 02/14/2018 Active ezetimibe (ZeTIA) 10 MG tablet Take 10 mg by mouth. 01/24/2018 Active metoPROLOL TARTRATE (LOPRESSOR) 100 MG tablet Take 100 mg by mouth. 02/14/2018 Active quinapril (ACCUPRIL) 10 MG tablet Take 10 mg by mouth daily. 3 11/27/2018 Active tamsulosin (FLOMAX) 0.4 MG capsule Take by mouth daily. 4 12/12/2018 Active traMADol (ULTRAM) 50 MG tablet Take 100 mg by mouth. 04/05/2018 Active melatonin 3 MG Tab tablet Take 15 mg by mouth nightly. Active Family History Medical History Relation Name Comments Stroke Father Coronary artery disease Mother Coronary artery disease Sister Heart attack Sister Hypertension Sister Relation Name Status Comments Father Mother Sister Social History Tobacco Use Types Packs/Day Years Used Date Smoking Tobacco: Former Smokeless Tobacco: Never Alcohol Use Standard Drinks/Week Comments Yes 2 (1 standard drink = 0.6 oz pur e alcohol) Sex and Gender Information Value Date Recorded Sex Assigned at Not on file Legal Sex Male 8:07 AM EDT Gender Identity Not on file Sexual Orientation Not on file Last Filed Vital Signs Vital Sign Reading Time Taken Comments Blood Pressure 120/62 01/06/2019 1:05 PM EDT R A RM 120 60 Pulse 60 01/06/2019 1:05 PM EDT Temperature - - Respiratory Rate - - Oxygen Saturation 97% 01/06/2019 1:05 PM EDT Inhaled Oxygen Concentration - - Weight 80.7 kg (178 lb) 01/06/2019 1:05 PM EDT Height 180.3 cm (5' 11 ) 01/06/2019 1:05 PM EDT Body Mass Index 24.83 01/06/2019 1:05 PM EDT Plan of Treatment Health Maintenance Due Date Last Done Comments Hepatitis C Virus Screening 1945 DTaP/Tdap/Td Vaccines (1 - Tdap) 02/16/1964 Pneumococcal Vaccines 50+ (1 of 1 - PCV) 1995 Zoster (Shingles) Vaccine (1 of 2) 1995 RSV Vaccine 60 years and old er and Patients (1 - 1-dose 75+ series) 02/16/2020 Influenza Vaccine 12/02/2023 COVID-19 Vaccine ( - 2023-2 5 season) 2024 Hepatitis B Vaccines Aged Out No long er eligible based on patient's age to complete this topic Insurance [facility] Care Teams Roustabout Head Relationship Specialty Start Date End Date Tod Johnson MD [address] [place] [address] Dr [place] [phone] PCP - General Internal Medicine 12/20/18
--- OUTSIDE RECORDS SUMMARY | 2024-08-22 12:15 | XMS_ITS | Clinical Summary ---
Author Organization [address] [place] [address] [place] [phone] Phone Care Team Providers Care Conveyor Maintenance Mechanic Name Role Phone Tod Johnson MD Primary Care Provider [phone] Allergies No known active allergies Medications acetaminophen (TYLENOL) 325 mg capsule Take 1,000 Tablets by mouth 2 times daily. Active aspirin 81 mg chewable tablet Take 81 mg by mouth daily. 3 Active atorvastatin (LIPITOR) 80 mg tablet Take 80 mg by mouth daily. 3 Active docusate sodium (COLACE) 100 mg tablet Take 200 mg by mouth 2 times daily. Active LORazepam (ATIVAN) 0.5 mg tablet Take 0.5 mg by mouth as needed. Active melatonin 5 mg capsule Take 10 mg by mouth at bedtime. Active mirabegron (MYRBETRIQ) 50 mg tablet extended release 24 hr 24 hr tablet Take 1 Tablet by mouth daily. Active nitroglycerin (NITROSTAT) 0.[address] 1 Tablet under the tongue every 5 minutes as needed for Chest pain. For a total of 3 doses, after third dose call 9- 3 Active pantoprazole (PROTONIX) 40 mg EC tablet Take 40 mg by mouth 2 times daily. Active traMADoL (ULTRAM) 50 mg tablet Take 50 mg by mouth as needed. Active evolocumab (Repatha SureClick) 140 mg/mL pen injector injection INJECT 140MG SUBCUTANEOUSLY EVERY 2 WEEKS 6 mL 2 4 Active hydroCHLOROthi azide (HYDRODIURIL) 25 mg tablet TAKE 1/2 TABLET BY MOUTH DAILY 45 tablet 3 5 Active cilostazoL (PLETAL) 100 mg tablet TAKE 1 TABLET BY MOUTH 2 TIMES DAILY FOR 180 DAYS. 180 tablet 5 Active oxyBUTYnin XL (DITROPAN-XL) 5 mg 24 hr tablet Take 1 tablet (5 mg total) by mouth 1 (one) time each day. Do not crush, chew, or split. Active Active Problems Problem Noted Date Diagnosed Date PVD (peripheral vascular disease) ([facility] V24) 09/10/2022 Overview (04/06/2024): Last Assessment & Plan: The patient has a history of peripheral vascular disease he has been followed by Dr. Verduzco in the past In addition he has up to 49% bilateral ICA stenosis In October 2019 he did demonstrate normal response with exercise PVR study bilaterally suggest he follow-up with vascular for annual assessments continue aspirin and atorvastatin 80 mg walk for exercise the absence of angina Assessment & Plan (06/27/2024 1:54 PM EST): Mitral regurgitation 06/11/2021 Overview (04/06/2024): Last Assessment & Plan: Echocardiogram collected shows up to moderate MR and unable to appreciate the murmur of mitral regurgitation on exam today checked in January 2022 he does have a preserved EF of 50 to 59% we will continue to follow at appropriate intervals is not describing unusual breathlessness A-fib ([facility] V24, [facility] V28) 03/26/2021 Overview (04/06/2024): Last Assessment & Plan: The focus of today's visit was discussing his angina there was no education that he had return to atrial fibrillation he certainly has P waves on EKG today certainly given his age and comorbid conditions if he returns into atrial fibrillation anticoagulation will need to be prioritized Cardiomyopathy ([facility] V24, [facility] V28) 2020 CAD (coronary artery disease) 03/21/2021 Overview (04/06/2024): Last Assessment & Plan: The patient's symptoms of chest pain with activity relieved by rest are certainly presumed to be anginal especially given his coronary anatomy and known residual disease . With a timeline of January for a planned trip to [place] the priority in discussion is trying to excise medical therapy to see if his symptoms can be alleviated. Will initiate isosorbide mononitrate ER 30 mg as well updated prescription for nitro was provided. Dr. Ferrer discussed that if this controls his symptoms we do not necessarily have to intervene any further However, if he still requires short acting nitroglycerin along with long-acting he may need to undergo stress testing which could be in the form of a PET stress test which may elicit more localization of the ischemia as he has multiple areas that could be involved . Meantime time he will try to pace his activity, continue drug therapy lifestyle modifications seek emergency attention if needed potential side effects are reviewed with emphasis on caution should he need a short acting nitroglycerin with isosorbide he needs to sit down to avoid severe hypotension symptoms Assessment & Plan (06/27/2024 1:54 PM EST): HLD (hyperlipidemia) 03/21/2021 Overview (04/06/2024): Last Assessment & Plan: He is on maximum statin therapy not describing unusual myalgia LDL appears well controlled at 61 continue lifestyle modifications HTN (hypertension) 03/21/2021 Overview (04/06/2024): Last Assessment & Plan: Blood pressure does appear to be ideally controlled we do note that he is on tamsulosin will not be adding isosorbide follow-up in 8 weeks to evaluate outcomes Assessment & Plan (06/27/2024 1:54 PM EST): Encounters Date Type Department Care Team Description 08/22/2024 Telephone [facility] - [facility] [address] [facility] [address] [place] [address] Jackson Ferrer MD Pre-Authorization (Repatha SureClick 140MG/ML auto-injectors) 06/27/2024 1:00 PM EST Office Visit [facility] - [facility] [address] [facility] [address] [place] [phone] Jackson Ferrer MD Coronary artery disease involving coronary bypass graft of [place] heart without angina pectoris (Primary Dx); Primary hypertension; PVD (peripheral vascular disease) ([facility] V24) from Last 3 Months Medical History Medical History Date Comments Family history of cardiovascular disease DX:Family history of cardiovascular disease Essential hypertension DX:Essent ial hypertension Hyperlipidemia DX:Hyperlipidemi a BPH (benign prostatic hyperplasia) DX:BPH (benign prostatic hyperplasia) Anxiety DX:Anxiety IBS (irritable bowel syndrome) D X:IBS (irritable bowel syndrome) Family History Medical History Relation Name Comments CABG Mother Coronary artery disease Mother Coronary artery disease Sister Relation Name Status Comments Mother Sister Social History Tobacco Use Types [...] on file Sexual Orientation Not on file Obstetrics History Last Filed Vital Signs Vital Sign Reading Time Taken Comments Blood Pressure 128/68 06/27/2024 1:05 PM EST Pulse 91 06/27/2024 1:05 PM EST Temperature - - Respiratory Rate - - Oxygen Saturation 96% 06/27/2024 1:05 PM EST Inhaled Oxygen Concentration - - Weight 79.8 kg (176 lb) 06/27/2024 1:05 PM EST Height 180.3 cm (5' 11 ) 06/27/2024 1:05 PM EST Body Mass Index 24.55 06/27/2024 1:05 PM EST Plan of Treatment Upcoming Encounters Date Type Department Care Team (Late st Contact Info) Description 01/16/2025 1:00 PM EDT Office Visit [facility] - [facility] [address] [facility] [address] [place] [phone] Jackson Ferrer MD [address] [facility] [address] [place] [address] Health Maintenance Due Date Last Done Comments DTaP,Tdap,and Td Vaccines (1 - Tdap) 02/16/1964 Cholesterol Screening (Lipid Panel) 04/11/2022 Falls Risk Assessment 04/11/2022 Hepatitis C Screening 04/11/2022 Medicare Annual Wellness Visit 04/11/2022 Social Influencers of Health Screening 04/11/2022 Hypertension/CHF/CAD Annual BMP Blood Test 05/15/2022 05/15/2021 Depression Screening 10/14/2022 10/14/2021 COVID-19 Vaccine ( season) 2024 12/31/2023, 02/12/2023, 02/23/2022, Additional history exists Pneumococcal Vaccine: 50+ Years Completed 06/02/2019, 10/22/2016 Zoster Vaccines Completed 02/02/2022, 08/15/2021 RSV Immunization Adult Patients Completed 02/22/2023 Influenza Vaccine Completed 01/06/2024, , 01/20/2022, Additional history exists HIB Vaccines Aged Out No longer eligi ble based on patient's age to complete this topic HPV Vaccines Aged Out No longer eligi ble based on patient's age to complete this topic Hepatitis A Vaccines Aged Out No long er eligible based on patient's age to complete this topic Hepatitis B Vaccines Aged Out No long er eligible based on patient's age to complete this topic IPV Vaccines Aged Out No longer eligi ble based on patient's age to complete this topic MMR Vaccines Aged Out No longer eligi ble based on patient's age to complete this topic Meningococcal ACWY Vaccine Aged Out N o longer eligible based on patient's age to complete this topic Meningococcal B Vaccine Aged Out No l onger eligible based on patient's age to complete this topic RSV Immunization Patients Under 20 months Aged Out No longer eligible based on patient's age to complete this topic Varicella Vaccines Aged Out No longer eligible based on patient's age to complete this topic Procedures Procedure Name Priority Date/Time Associated Diagnosis Comments ANNUAL BMP BLOOD TEST Routine 05/15/2021 from Last 3 Months or Most Recently Relevant to Health Maintenance Results * Annual BMP Blood Test (05/15/2021) Annual BMP Blood Test Abstracted us Historical Provider MD HEALTH MAINTENANCE Final Result from Last 3 Months or Most Recently Relevant to Health Maintenance Insurance [employer] Care Teams Conveyor Maintenance Mechanic Relationship Specialty Start Date End Date Tod Johnson MD PCP - General Internal Medicine 09/29/18
== END 2024-08-22 10:30 | disposition home or self-care (01) ==
LOC: HO.LNP 10:29
PROVIDERS: Visit Provider Internal Medicine
DX: Z00.00 Encounter for general adult medical examination without abnormal findings (principal); Z12.5 Encounter for screening for malignant neoplasm of prostate; I10 Essential (primary) hypertension; R73.03 Prediabetes; N40.0 Benign prostatic hyperplasia without lower urinary tract symptoms; D72.820 Lymphocytosis (symptomatic); E78.00 Pure hypercholesterolemia, unspecified
CPT/HCPCS: 80053; 80061; 81001; 82043; 82570; 83036; 84153; 85025; 87086